=== PATIENT | male | born 1995 | race Caucasian/White ===

== ENCOUNTER 2018-11-26 23:20 | Emergency (ER) | payer BC ==
[~2018-11-26] VITALS: Ht 172.7 cm; Wt 65.8 kg
[2018-11-26 23:23] VITALS: Ht 172.7 cm; Wt 65.8 kg
[2018-11-27 02:07] VITALS: BP 114/63
== END 2018-11-27 02:07 | disposition home or self-care (01) ==
LOC: ED 23:20
DX: F12.929 Cannabis use, unspecified with intoxication, unspecified (principal); R42 Dizziness and giddiness